=== PATIENT | male | born 1970 | race Caucasian/White ===

== ENCOUNTER → 2020-10-13 09:27 | Outpatient (BNVA) | payer OTHER, SELFPAY | PROVIDERS: PCP Family Medicine; Visit Provider Family Medicine | DX: Z13.6 Encounter for screening for cardiovascular disorders (principal); R79.89 Other specified abnormal findings of blood chemistry | CPT/HCPCS: 80053; 80061; 84403; 85025 ==

== ENCOUNTER 2021-02-24 11:37 | Emergency (ER) | payer OTHER, SELFPAY ==
[2021-02-24 11:54] VITALS: BP 126/78; PULSE 57; RESP 16; TEMP 36.8; O2SAT 90; BMI 35.5
--- NOTE | 2021-02-24 11:58 | XR_ITS ---
WS: [id number] Exam: XR chest 1V portable [id number] Date/Time of Exam: 02/24/2021 11:58 AM Reason For Exam: SOB No previous exams. There is infiltrate along the left heart border. There may be some mild infiltrate in the right base. The lungs are fully inflated. No pleural effusions. Normal cardiomediastinal silhouette. Bony struct ures are intact. XR/XR chest 1V portable [id number] IMPRESSION: 1. Infiltrate along the left heart border and possibly the right basal region. These findings may represent active pneumonia or chronic change.
--- NOTE | 2021-02-24 14:46 | W.ED.COVID ---
HPI - COVID General: Chief Complaint: COVID symptoms Stated Complaint: covid+ sob Time Seen by Provider: 02/24/21 14:46 Triage information: Has fever, cough or shortness of breath. Exposure to COVID + person last 14 days History of Present Illness: HPI Narrative: Mr Cheng is a 50 year old gentleman with significant past medical history of MS who presents to the ED for cough and SOB. Symptoms started approximately 2 weeks ago and he was found to be covid positive. He had fairly typical covid symptoms including fever, cough, sob, aches, malaise. Initially mild then worsened to moderate intensity. He felt like he was improving until 3 days ago when symptoms worsened again and are not moderate again in intensity. Worse with activities. No other changes in health, exacerbating or alleviating factors identified. COVID Results: No Data to Display Review of Systems General: Reports: 10 or more systems reviewed and unremarkable except in HPI and below PFSH ED PFSH: Medical History Low testosterone Multiple sclerosis Diagnosed in 2013. Surgical History History of appendectomy History of inguinal hernia repair Social History Smoking and tobacco status: never smoked Alcohol intake: never Physical Exam Narrative: EXAM NARRATIVE: GENERAL/CONSTITUTIONAL - somewhat ill-appearing. No acute distress. Eyes - PERRL, no conjunctival injection ENMT - Atraumatic external nose and ears. NECK - supple. trachea midline CARDIOVASCULAR - regular rate and rhythm. RESPIRATORY -course to auscultation bilaterally. ABDOMEN/GI - Nontender/Nondistended. MSK - Extremities without obvious deformity or tenderness to palpation SKIN - Warm, Dry NEURO - alert and appropriately oriented. Moves all extremities equally. Course ED course: - Patient was seen and evaluated by me at bedside - Patient placed on cardiac monitors, IV access obtained - Initial evaluation notable for as noted - symptom treatment ordered - Labs notable for no leukocytosis, mild dehydration. - Imaging notable for heart border and basilar infiltrate on xray - Upon serial reexamination after treatment the patient was improved - Based on patient history, evaluation, labs, and imaging as interpreted the most likely cause of the patient's condition is unclear, likely covid, though based on description concerning for secondary bacterial infection especially in the context of chronic illness (MS). - The results of ED evaluation were discussed with the patient including prescriptions and/or symptomatic cares (if applicable) including appropriate and responsible use, followup plan, and return precautions. The patient verbalized understanding and felt safe for discharge. - Patient discharged in satisfactory condition. Vital Signs: Vital signs: Vital Signs Temperature 98.4 F 02/24/21 17:15 Pulse Rate 66 02/24/21 17:15 Respiratory Rate 18 02/24/21 17:15 Blood Pressure 120/79 02/24/21 17:15 Pulse Oximetry 96 02/24/21 17:15 MDM - COVID Medical Records: Attestation: I reviewed the patient's medical records. Lab Data: Attestation: I reviewed the patient's lab results. Labs: Lab Results 02/24/21 02/24/21 02/24/21 15:01 15:12 15:15 WBC 6.3 10^3/uL 10^3/ uL (4.0-10.0) RBC 4.91 10^6/uL 10^6 /uL (4.1-5.3) Hgb 14.1 g/dL g/dL (11.7-16.6) Hct 42.6 % % (42.0-52.0) MCV 86.8 fl fl (80-94) MCH 28.7 pg pg (28.0-34.0) MCHC 33.1 g/dL g/dL (30.0-36.0) RDW 12.4 % % (12.1-15.1) Plt Count 164 10^3/cmm 10^3 /cmm (130-400) MPV 10.8 fL H fL (7.4-10.4) Neut % (Auto) 82.8 % % Lymph % (Auto) 7.3 % % Garvin % (Auto) 9.1 % % Eos % (Auto) 0.0 % % Baso % (Auto) 0.2 % % Neut # (Auto) 5.20 10^3/uL 10^3 /uL (1.8-7.7) Lymph # (Auto) 0.5 10^3/uL L 10^ 3/uL (0.8-4.8) Garvin # (Auto) 0.6 10^3/uL 10^3/ uL (0.2-0.9) Eos # (Auto) 0.0 10^3/uL 10^3/ uL (0.0-0.8) Baso # (Auto) 0.0 10^3/uL 10^3/ uL (0.0-0.1) Nucleated RBC % (a uto) 0 % % Nucleated RBCs # 0.0 /100WBC /100W BC Specimen Type Arterial Sample Site Radial, right ABG pH 7.43 (7.35-7.45) ABG pCO2 36.7 mmHg mmHg (35-45) ABG pO2 62.3 mmHg L mmHg (80.0-100.0) ABG HCO3 24.2 mmol/L mmol/ L (22-26) ABG Base Excess 0.1 mmol/L mmol/L (-2.0-2.0) Korey Test Pos Hematocrit 44.2 % % (42-52) O2 Delivery Device Room air FiO2 21.0 % % Manager Production ID [place] Sodium Potassium Chloride Carbon Dioxide Anion Gap BUN Creatinine GFR Calculation Glucose Calculated Osmolal ity Calcium Total Bilirubin AST ALT Alkaline Phosphata se C-Reactive Protein 27.0 mg/L H mg/L (0.0-4.9) Total Protein Albumin Globulin Procalcitonin 0.06 ng/mL ng/mL (0-0.5) 02/24/21 15:15 WBC RBC Hgb Hct MCV MCH MCHC RDW Plt Count MPV Neut % (Auto) Lymph % (Auto) Garvin % (Auto) Eos % (Auto) Baso % (Auto) Neut # (Auto) Lymph # (Auto) Garvin # (Auto) Eos # (Auto) Baso # (Auto) Nucleated RBC % (a uto) Nucleated RBCs # Specimen Type Sample Site ABG pH ABG pCO2 ABG pO2 ABG HCO3 ABG Base Excess Korey Test Hematocrit O2 Delivery Device FiO2 Manager Production ID Sodium 135 mmol/L L mmol /L (136-145) Potassium 4.5 mmol/L mmol/L (3.5-5.1) Chloride 99 mmol/L mmol/L (98-107) Carbon Dioxide 20 mmol/L L mmol/ L (22-29) Anion Gap 20.5 H (5-19) BUN 15 mg/dL mg/dL (6-20) Creatinine 0.8 mg/dL mg/dL (0.7-1.2) GFR Calculation 103.2 mL/min mL/m in (90-130) Glucose 107 mg/dL mg/dL (65-115) Calculated Osmolal ity 281 mOsm/kg L mOs m/kg (285-295) Calcium 7.9 mg/dL L mg/dL (8.5-10.5) Total Bilirubin 0.9 mg/dL mg/dL (0.15-1.2) AST 21 U/L U/L (0-40) ALT 17 U/L U/L (0-41) Alkaline Phosphata se 70 IU/L IU/L (40-130) C-Reactive Protein Total Protein 6.6 g/dL g/dL (6.6-8.7) Albumin 4.0 g/dL g/dL (3.5-5.2) Globulin 2.6 g/dL g/dL (1.3-4.6) Procalcitonin COVID Results: No Data to Display Discharge Plan Discharge Patient Disposition: Home Clinical Impression: COVID-19, Pneumonia Condition: Stable Prescriptions: No Action cholecalciferol (vitamin D3) 125 mcg (5,000 unit) capsule 125 mcg PO DAILY RF: 0 dimethyl fumarate 240 mg capsule,delayed release(DR/EC) 240 mg PO BID RF: 0 testosterone cypionate [Depo-Testosterone] 200 mg/mL oil IM .EVERY WEEK RF: 0 amitriptyline 100 mg tablet 100 mg PO DAILY Qty: 30 RF: 0 Discharge Orders: Discharge ED (Routine); Ordered 02/24/21 Ordered By: Nilesh Fan Referrals: Annamaria Guerrero DO [Primary Care Provider] - Discharge Diet: Usual diet Discharge Activity: Resume usual activity Patient Instructions: Pneumonia (ED), COVID-19 (Coronavirus Disease 2019) (ED) Activity Restrictions/Additional Instructions: Thank you for visiting the emergency department. You were seen and evaluated for cough and generalized malaise. I believe that most your symptoms are related to COVID-19 however given your description of improvement and then worsening it is possible that you have an atypical secondary infection. You will be given a prescription for antibiotics. Return to the emergency department for worsening symptoms or anything else that you are concerned about and feel needs emergency department evaluation. Coding Level of Care Code ED Director [employer] for Yesenia Dangelo
[2021-02-24 15:06] VITALS: BP 118/72; PULSE 63; RESP 17; TEMP 37.1; O2SAT 96
[2021-02-24 15:08] VITALS: O2SAT 96
[2021-02-24 15:13] LABS: ABG PCO2 36.7 mmHg (35-45); ABG PH Result 7.43 (7.35-7.45); Arterial Blood Gas Hematocrit 44.2 % (42-52); Base Excess ABG 0.1 mmol/L (-2.0-2.0); Blood Gas Allen Test Pos; Blood Gas Sample Type Arterial; HCO3 ABG 24.2 mmol/L (22-26); PO2 ABG 62.3 mmHg (80.0-100.0)
[2021-02-24 15:14] LABS: Blood Gas Operator Identificat MONRO; Blood Gas Sample Site Radial, right; Oxygen Device ROOM AIR
[2021-02-24 15:22] LABS: Basophils % 0.2 %; Hematocrit 42.6 % (42.0-52.0); Hemoglobin 14.1 g/dL (11.7-16.6); Lymphocytes # 0.5 10^3/uL (0.8-4.8); Lymphocytes % 7.3 %; Mean Corpuscular HGB Conc 33.1 g/dL (30.0-36.0); Mean Corpuscular Hemoglobin 28.7 pg (28.0-34.0); Mean Corpuscular Volume 86.8 fl (80-94); Mean Platelet Volume 10.8 fL (7.4-10.4); Monocytes # 0.6 10^3/uL (0.2-0.9); Monocytes % 9.1 %; Neutrophils % 82.8 %; Nucleated Red Blood Cells % 0 %; Platelet Count 164 10^3/cmm (130-400); Red Blood Count 4.91 10^6/uL (4.1-5.3); Red Cell Distribution Width 12.4 % (12.1-15.1); White Blood Count 6.3 10^3/uL (4.0-10.0)
[2021-02-24 15:43] LABS: Alanine Aminotransferase 17 U/L (0-41); Alkaline Phosphatase 70 IU/L (40-130); Anion Gap 20.5 (5-19); Aspartate Amino Transferase 21 U/L (0-40); Blood Urea Nitrogen 15 mg/dL (6-20); Calcium 7.9 mg/dL (8.5-10.5); Carbon Dioxide 20 mmol/L (22-29); Chloride 99 mmol/L (98-107); Creatinine Clr Calc Pharmacy 150.2929; Globulin 2.6 g/dL (1.3-4.6); Glomerular Filtration Rate 103.2 mL/min (90-130); Glucose 107 mg/dL (65-115); Osmolality Calculated 281 mOsm/kg (285-295); Potassium 4.5 mmol/L (3.5-5.1); Sodium 135 mmol/L (136-145); Total Bilirubin 0.9 mg/dL (0.15-1.2); Total Protein 6.6 g/dL (6.6-8.7)
[2021-02-24 15:49] LABS: Procalcitonin 0.06 ng/mL (0-0.5)
[2021-02-24 17:15] VITALS: BP 120/79; PULSE 66; RESP 18; TEMP 36.9; O2SAT 96
== END 2021-02-24 17:16 | disposition home or self-care (01) ==
PROVIDERS: Nurse Practitioner Family; Emergency Provider Emergency Medicine; PCP Family Medicine
DX: U07.1 COVID-19 (principal); J12.82 Pneumonia due to coronavirus disease 2019; G35 Multiple sclerosis
CPT/HCPCS: 36415; 36600; 71045; 80053; 82803; 84145; 85025; 86140; 99283

== ENCOUNTER → 2021-12-11 10:54 | Outpatient (BNVA) | payer OTHER, SELFPAY | PROVIDERS: PCP Registered Nurse; Visit Provider Registered Nurse | DX: R79.89 Other specified abnormal findings of blood chemistry (principal); E78.5 Hyperlipidemia, unspecified | CPT/HCPCS: 80053; 80061; 84402; 84403; 85025 ==

== ENCOUNTER → 2023-07-29 09:08 | Outpatient (BNVA) | payer BC, SELFPAY | PROVIDERS: PCP Registered Nurse; Visit Provider Registered Nurse | DX: E29.1 Testicular hypofunction (principal) | CPT/HCPCS: 84403 ==

== ENCOUNTER → 2023-11-26 10:02 | Outpatient (BNVA) | payer BC, SELFPAY | PROVIDERS: PCP Registered Nurse; Visit Provider Registered Nurse | DX: E29.1 Testicular hypofunction (principal) | CPT/HCPCS: 80053; 84403 ==

== ENCOUNTER → 2024-09-23 10:46 | Outpatient (BNVA) | payer BC, SELFPAY | PROVIDERS: PCP Registered Nurse; Visit Provider Registered Nurse | DX: E29.1 Testicular hypofunction (principal) | CPT/HCPCS: 80053; 80061; 84402; 84403; 85025 ==

== ENCOUNTER → 2024-09-29 09:05 | Outpatient (BNVA) | payer BC, SELFPAY | PROVIDERS: PCP Registered Nurse; Visit Provider Registered Nurse | DX: R17 Unspecified jaundice (principal) | CPT/HCPCS: 86705; 86706; 86709; 86803; 87340 ==

== ENCOUNTER 2024-10-16 07:08 | Outpatient (CLI) | payer BC, SELFPAY ==
--- NOTE | 2024-10-16 07:45 | US_ITS ---
WS: [id number] RIGHT UPPER QUADRANT ULTRASOUND HISTORY: E80.6 - Other disorders of bilirubin metabolism COMPARISON: None available. Liver: 16.2 cm in length. Entire liver not well visualized due to body habitus. No abnormality identified. There is mild hepatic steatosis. Portal Vein: Normal hepatopetal flow with monophasic waveform. Gallbladder: Normally distended gallbladder with no stones or wall thickening. CBD: 0.4 cm Pancreas: Portions of the head and tail are obscured. The body is negative. Right kidney: 10.4 cm in length. Normal size and echogenicity. No hydronephrosis or mass. Aorta and IVC: Unremarkable abdominal aorta and IVC. No ascites. US/US abdomen limited [id number] IMPRESSION: 1. Mild hepatic steatosis. 2. Normal gallbladder. 3. Nonvisualization of the pancreas.
== END 2024-10-16 07:09 | disposition home or self-care (01) ==
LOC: RAD 07:09
PROVIDERS: PCP Registered Nurse; Visit Provider Registered Nurse
DX: E80.6 Other disorders of bilirubin metabolism (principal); K76.0 Fatty (change of) liver, not elsewhere classified
CPT/HCPCS: 76705